=== PATIENT | female | born 2000 | race Caucasian/White ===

== ENCOUNTER 2018-05-26 21:41 | Emergency (ER) | payer OTHER ==
--- NOTE | 2018-05-26 21:47 | EDPHY ---
H & P Stated Complaint: Pain with urination, frequency for 1 hour Time Seen by Provider: 05/26/18 21:47 HPI/ROS: HPI CHIEF COMPLAINT: Urinary frequency, dysuria HISTORY OF PRESENT ILLNESS: Patient is a 18-year-old female, she presents to the emergency room with 1 hr urinary frequency, dysuria. Denies any pelvic pain , denies any vaginal discharge, denies being . Past Medical History: Denies significant medical history Past Surgical History: Denies significant surgical history Social History: Denies daily use of drugs alcohol tobacco. Family History: Noncontributory ROS REVIEW OF SYSTEMS: 10 Systems were reviewed and negative with the exception of the elements mentioned in the history of present illness. Exam Constitutional triage nursing summary reviewed, vital signs reviewed, awake/ alert. Eyes normal conjunctivae and sclera, EOMI, PERRLA. HENT normal inspection, atraumatic, moist mucus membranes, no epistaxis, neck supple/ no meningismus, no raccoon eyes. Respiratory clear to auscultation bilaterally, normal breath sounds, no respiratory distress, no wheezing. Cardiovascular rate normal, regular rhythm, no murmur, no edema, distal pulses normal. Gastrointestinal soft, non-tender, no rebound, no guarding, normal bowel sounds, no distension, no pulsatile mass. Genitourinary no CVA tenderness. Musculoskeletal no midline vertebral tenderness, full range of motion, no calf swelling, no tenderness of extremities, no meningismus, good pulses, neurovascularly intact. Skin pink, warm, & dry, no rash, skin atraumatic. Neurologic awake, alert and oriented x 3, AAOx3, moves all 4 extremities equally, motor intact, sensory intact, CN II-XII intact, normal cerebellar, normal vision, normal speech. Psychiatric normal mood/affect. Heme/Lymph/Immune no lymphadenopathy. Differential Diagnosis: Includes but is not limited to in a particular order, UTI, cystitis, pyelonephritis Medical Decision Making: Plan for this patient check UA, urine . Re- evaluate. Re-evaluation: Patient's urinalysis reviewed, will send urine culture. Start on Keflex. Keflex take-home pack for tonight. Patient here dysuria and urinary frequency. Recommend drinking lots of fluids stay well-hydrated. Source: Patient - Personal History LMP (Females 10-55): 1-7 Days Ago Current Tetanus Diphtheria and Acellular Pertussis (TDAP): Yes - Medical/Surgical History Hx Asthma: No Hx Chronic Respiratory Disease: No Hx Diabetes: No Hx Cardiac Disease: No Hx Renal Disease: No Hx Cirrhosis: No Hx Alcoholism: No Hx HIV/AIDS: No Hx Splenectomy or Spleen Trauma: No Other PMH: Denies - Social History Smoking Status: Never smoked Constitutional: Initial Vital Signs Temperature (C) 37.0 C 05/26/18 21:44 Heart Rate 71 05/26/18 21:44 Respiratory Rate 16 05/26/18 21:44 Blood Pressure 152/84 H 05/26/18 21:44 O2 Sat (%) 96 05/26/18 21:44 O2 Delivery Mode Room Air Allergies/Adverse Reactions: No Known Allergies Allergy (Unverified 05/26/18 21:44) Home Medications: Medication Instructions Recorded Cephalexin [Keflex] 500 mg PO Q6H #28 cap 05/26/18 Phenazopyridine HCl [Pyridium] 200 mg PO TID #15 tab 05/26/18 Medical Decision Making - Data Points Laboratory Results: 05/26/18 05/26/18 21:58 21:58 Urine Color COLORLESS Urine Appearance CLEAR Urine pH 6.0 (5.0-7.5) Ur Specific [place] < 1.001 L (1.002-1.030) Urine Protein NEGATIVE (NEGATIVE) Urine Ketones NEGATIVE (NEGATIVE) Urine Blood 3+ H (NEGATIVE) Urine Nitrate NEGATIVE (NEGATIVE) Urine Bilirubin NEGATIVE (NEGATIVE) Urine Urobilinogen NEGATIVE EU EU (0.2-1.0) Ur Leukocyte Esterase NEGATIVE (NEGATIVE) Urine RBC 1-3 /hpf /hpf (0-3) Urine WBC 1-3 /hpf /hpf (0-3) Ur Epithelial Cells NONE SEEN /lpf /lpf (NONE-1+) Urine Bacteria TRACE /hpf H /hpf (NONE SEEN) Urine Glucose NEGATIVE (NEGATIVE) Urine Test Pending Departure - Departure Disposition: Home, Routine, Self-Care Clinical Impression: Urinary tract infection Condition: Good Instructions: Urinary Tract Infection in Women (ED) Additional Instructions: 1. Make sure to drink lots of fluids stay well-hydrated 2. Antibiotics as prescribed 3. Return to the emergency room if he develops worsening symptoms includes worsening abdominal pain, high fever, vomiting, not doing well. Referrals: NONE *PRIMARY CARE P,. [Primary Care Provider] - As per Instructions [facility]. [Clinic] - As per Instructions Prescriptions: Cephalexin [Keflex] 500 mg PO Q6H #28 cap Phenazopyridine HCl [Pyridium] 200 mg PO TID #15 tab
[2018-05-26] MEDS ORDERED: CEPHALEXIN 500 MG CAP PO ONE (22:11)
[2018-05-26] MEDS ORDERED: CEPHALEXIN 500MG PREPACK#4 BTL TAKEHOME ONE (22:11)
[2018-05-26 23:09] VITALS: BP 148/79
== END 2018-05-26 22:57 | disposition home or self-care (01) ==
DX: N39.0 Urinary tract infection, site not specified (principal)